=== PATIENT | male | born 1955 | race Caucasian/White ===

== ENCOUNTER → 2024-03-28 18:16 | Outpatient (REF) | payer MEDICARE, SELFPAY | LOC: PAVMRI 18:16 | PROVIDERS: ATTENDING PHYSICIAN Orthopaedic Surgery | DX: M25.551 Pain in right hip (principal) | CPT/HCPCS: 73721 ==

== ENCOUNTER → 2024-05-15 09:12 | Outpatient (REF) | payer MEDICARE, SELFPAY | LOC: MRI 3T 09:12 | PROVIDERS: ATTENDING PHYSICIAN Pain Medicine Interventional Pain Medicine | DX: M54.16 Radiculopathy, lumbar region (principal) | CPT/HCPCS: 72148 ==

== ENCOUNTER 2024-05-16 09:37 | Outpatient (RCR) | payer MEDICARE, SELFPAY | END 2024-06-01 07:24 | disposition home or self-care (01) | LOC: ROT 09:37 | PROVIDERS: ATTENDING PHYSICIAN Orthopaedic Surgery Hand Surgery | DX: M72.0 Palmar fascial fibromatosis [Dupuytren] (principal); Z73.6 Limitation of activities due to disability | CPT/HCPCS: 97760 ==